=== PATIENT | female | born 1990 | race Hispanic/Latino ===

== ENCOUNTER 2025-09-13 08:07 | Emergency (ER) | payer OTHER ==
[~2025-09-13] VITALS: Ht 157.5 cm; Wt 83.9 kg
[2025-09-13 08:12] VITALS: BP 131/81; PULSE 78; RESP 20; TEMP 98; O2SAT 97
--- NOTE | 2025-09-13 08:25 | ERN ---
General Chief Complaint: Back Pain-No Injury Stated Complaint: BACK PAIN Time Seen by MD: 08:09 Source: patient History of Present Illness Initial Comments Patient is a 34-year-old female coming in complaining of right lower back pain. Per patient this has been ongoing for several days. She states that the pain starts in her lower back radiates down her right lower leg. The pain is sharp she quantifies the pain at 8/10. Pain is exacerbated with movement and bending over. Allergies: Coded Allergies: No Known Drug Allergies (Unverified Allergy, Unknown, 09/13/25) Past Medical History Past Medical History: No Pertinent History Past Surgical History: Other Surgical History Other: FALLOPIAN TUBE REMOVAL Female( History) LMP: Sep 01, 2025 ROS Dictation CONSTITUTIONAL: No chills, no fever, no weakness, no diaphoresis, no malaise. HEAD/FACE: No signs of trauma. EENT: No eye pain, no blurred vision, no tearing, no double vision, no ear pain, no ear discharge, no nose pain, no nasal congestion, no throat pain, no throat swelling, no mouth pain. RESPIRATORY: No cough, no orthopnea, no SOB, no stridor, no wheezing. CARDIOVASCULAR: No chest pain, no edema, no palpitations, no syncope. GASTROINTESTINAL/ABDOMINAL: No abdominal pain, no constipation, no diarrhea, no nausea, no vomiting. GENITOURINARY: No abnormal discharge, no dysuria, no frequent urination, no hematuria. No complaints of pain in the genitals. MUSCULOSKELETAL: back pain, no gout, no joint pain, no joint swelling, muscle pain, no muscle stiffness, no neck pain. INTEGUMENTARY: No change in color, no change in hair/nails, no dryness, no lesion, no lumps, no rash. NEUROLOGICAL/PSYCH: No anxiety, not depressed, no emotional problem, no headac he, no numbness, no pre-existing deficit, no history of seizures, no tremors, no weakness. HEMATOLOGIC/LYMPHATIC: Not anemic, no history of blood clots, no apparent bleeding, no bruising, glands not swollen. All Systems Negative, Except as Noted. Physical Exam Physical Exam Dictation VITAL SIGNS: Reviewed. GENERAL APPEARANCE: Alert, oriented x3, no acute distress, obese. HEAD AND FACE: Non-traumatic. EYES: PERRL, pink conjunctivas, eyelid no trauma, anterior chamber clear. EARS: Pinnas intact and no signs of trauma or erythema. Ear canals clear and no discharge. TMs no erythema. NOSE: No discharge, no bleeding. OROPHARYNX: Mouth normal, teeth no caries, tongue pink. Pharynx clear, no erythema. Tonsils no exudates, no abscesses noted. Mucous membrane moist. NECK: Supple, non-tender, no thyromegaly, no masses, no JVD, no bruits. BREAST: Deferred. CHEST: No tenderness, no crepitus, no paradoxical movement, no retractions. LUNGS: Clear, well-ventilated, symmetric, no rales, no wheezing, no rhonchi, no stridor, good breath sounds bilaterally. HEART: Regular rate, regular rhythm, no murmur, no gallops. VASCULAR: No peripheral edema. ABDOMEN: Soft, positive bowel sounds, nondistended, no guarding, nontender, no rebound, no masses no hepatomegaly, no splenomegaly, no Razo's sign, no hernias. RECTAL: Deferred. GENITAL: Deferred. NEUROLOGICAL: Normal speech, gross motor function intact, gross sensory function intact. MUSCULOSKELETAL: Neck nontender, full range of motion, back nontender, full range of motion. EXTREMITIES: Nontender, full range of motion. Right piriformis muscle pain on palpation, pain on flexion and SKIN: Color pink, dry, no turgor, no rash, no lacerations, no abrasions, no contusions. LYMPHATICS: Deferred. Results Laboratory and Microbiology Labs Reviewed?: Yes EKG/XRAY/US/CT/MRI X-RAY Comment IMAGING REPORT Signed PATIENT: ELA GODFREY MR#: [id number] : 1990 SEX: F AGE: 34 LOCATION: [facility] ORDER 3 STATUS: REG REPORT#: [id number] SERVICE REASON: back pain ORDERING PHYSICIAN: CHUCHO STUART MD PROCEDURE: LUMB 2 3VW - LUMBAR SPINE 2-3VWS EXAM: CR Lumbar Spine, 3 View. CLINICAL HISTORY: back pain COMPARISON: None provided. FINDINGS: BONES: No acute fracture or aggressively appearing osseous lesion. ALIGNMENT: Mild straightening of the lumbar spine. No significant scoliosis. DISCS / DEGENERATIVE CHANGES: Reduced L4-5 intervertebral disc space. The disc spaces are preserved. SOFT TISSUES: The soft tissues are unremarkable. IMPRESSION: Mild straightening of the lumbar spine. Reduced L4-5 intervertebral disc space. /[place] DICTATED BY: JOHANN MONDRAGON Jr., MD DATE: 09/13/251103 ELECTRONICALLY SIGNED BY: JOHANN MONDRAGON Jr., MD DATE: 09/13/251103 IMAGING REPORT Signed PATIENT: ELA GODFREY MR#: [id number] : 1990 SEX: F AGE: 34 LOCATION: [facility] ORDER 3 STATUS: [facility] REPORT#: [id number] SERVICE 2 REASON: back pain ORDERING PHYSICIAN: CHUCHO STUART MD PROCEDURE: CERV 2 3VW - CERV SPINE 2-3VWS EXAM: CR Cervical spine, 4views. CLINICAL HISTORY: Back pain. COMPARISON: None provided. FINDINGS: Cervical alignment is within normal limits. Normal intervertebral disc spaces. Normal vertebral body heights. No acute fracture. Bilateral C6 uncinate process hypertrophy and mild narrowing of the bilateral neural foramina at the C5-C6 level. The prevertebral soft tissues are within normal limits. The included lungs are clear. IMPRESSION: No acute bony changes. Bilateral C6 uncinate process hypertrophy and mild narrowing of the bilateral neural foramina at the C5-C6 level. /[place] DICTATED BY: JOHANN MONDRAGON Jr., MD DATE: 09/13/251102 ELECTRONICALLY SIGNED BY: JOHANN MONDRAGON Jr., MD DATE: 09/13/251102 MDM MDM: Differential diagnosis: Right piriformis muscle tenderness, right-sided sciatica, chronic back pain, osteoarthritis of the spine Rationale: Tests considered and ordered secondary to shared decision making include: Previous outside records reviewed: Old ER visits. Risk of complication and/or morbidity or mortality of patient management: None Medications-Per medication reconciliation Need for hospitalization: Patient does not meet criteria for hospitalization. Need for emergency major/minor surgery: No Patient is a 34-year-old female coming in complaining of right lower extremity pain. On physical exam right piriformis muscle tenderness on palpation right lower lumbar tenderness on palpation. X-rays disclose chronic changes. We will be referring patient to employment law specialist and/or neurosurgeon for further evaluation. ED Course Orders Procedure Category Date Status Time Ketorolac PHA 09/13/25 Complete Tromethamine 30mg/Ml 08:30 Orphenadrine Citrate PHA 09/13/25 Complete (Norflex) 08:30 Lumbar Spine 2-3vws RAD 09/13/25 Resulted 08:53 Cerv Spine 2-3vws RAD 09/13/25 Resulted 08:53 Triamcinolone Acet PHA 09/13/25 Complete 40mg/Ml 1ml (Kenalog 09:00 Current Medications Medications (Trade) Dose Ordered Sig/Juanjose Route PRN Reason Start Time Stop Time Status Last Admin Dose Admin Ketorolac Tromethamine (toRADol) 30 mg ONCE ONCE IM 09/13/25 08:30 09/13/25 08:31 DC 09/13/25 08:41 Orphenadrine Citrate (Norflex) 60 mg ONCE ONCE IM 09/13/25 08:30 09/13/25 08:31 DC 09/13/25 08:41 Triamcinolone Acetonide (Kenalog 40) 40 mg ONCE ONCE IM 09/13/25 09:00 09/13/25 09:01 DC 09/13/25 09:33 Vital Signs Date Time Temp Pulse Resp B/P (MAP) Pulse Ox O2 Delivery O2 Flow Rate FiO2 09/13/25 08:12 98.1 78 20 131/81 97 Room Air* 0 21 09/13/25 08:08 98.1 82 20 131/81 99 Room Air 0 DX & DISP Disposition: Discharge Departure Impression: Primary Impression: 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 TAKE MEDICATIONS DIRECTED HERE IN THE EMERGENCY ROOM. OKAY TO CONTINUE HOME MEDICATIONS UNLESS OTHERWISE DISCUSSED DURING YOUR VISIT IN THE EMERGENCY ROOM TODAY. RETURN TO YOUR NEAREST EMERGENCY ROOM IF SYMPTOMS WORSEN OR IF THERE IS NO IMPROVEMENT. CALL 911 IF YOU NEED IMMEDIATE ASSISTANCE. TAKE TYLENOL [id number] NE EDED AND IF NO CONTRAINDICATIONS ARE PRESENT. INCREASE ORAL HYDRATION. A WOUND CULTURE OR URINE CULTURE WAS ORDERED HERE IN THE EMERGENCY ROOM DEPARTMENT PLEASE FOLLOW-UP WITH PRIMARY CARE PROVIDER AND ADVISE THEM TO GET REPORTS FROM OUR FACILITY. IF YOU HAD ANY CARLY WRAP/SPLINTS THAT WERE APPLIED HERE, PLEASE DO NOT REMOVE THEM UNTIL YOU SEE YOUR PRIMARY CARE OR SPECIALTY. Referrals: Referrals: SELF,REFERRAL (PCP) JOSE MONTEZ MD, JOSE G MD Time of Disposition: 10:15 CHUCHO STUART MD Sep 13, 2025 08:25
[2025-09-13] MEDS: ORPHENADRINE 60MG/2ML IM ONE (08:41)
[2025-09-13] MEDS: TRIAMCINOLONE ACETONIDE 40 MG/ML 1ML VIAL IM ONE (09:33)
--- NOTE | 2025-09-13 10:04 | HMCIMG ---
EXAM: CR Cervical spine, 4views. CLINICAL HISTORY: Back pain. COMPARISON: None provided. FINDINGS: Cervical alignment is within normal limits. Normal intervertebral disc spaces. Normal vertebral body heights. No acute fracture. Bilateral C6 uncinate process hypertrophy and mild narrowing of the bilateral neural foramina at the C5-C6 level. The prevertebral soft tissues are within normal limits. The included lungs are clear. IMPRESSION: No acute bony changes. Bilateral C6 uncinate process hypertrophy and mild narrowing of the bilateral neural foramina at the C5-C6 level. /[place]
--- NOTE | 2025-09-13 10:05 | HMCIMG ---
EXAM: CR Lumbar Spine, 3 View. CLINICAL HISTORY: back pain COMPARISON: None provided. FINDINGS: BONES: No acute fracture or aggressively appearing osseous lesion. ALIGNMENT: Mild straightening of the lumbar spine. No significant scoliosis. DISCS / DEGENERATIVE CHANGES: Reduced L4-5 intervertebral disc space. The disc spaces are preserved. SOFT TISSUES: The soft tissues are unremarkable. IMPRESSION: Mild straightening of the lumbar spine. Reduced L4-5 intervertebral disc space. /[place]
[2025-09-13] MEDS ORDERED: METH-662 PO (10:17)
[2025-09-13] MEDS ORDERED: NAPR-1194 PO (10:17)
[2025-09-16] MEDS ORDERED: IBUP-2784 PO (11:22)
[2025-09-16] MEDS ORDERED: LIDO1ADH71 TP (11:22)
== END 2025-09-13 10:35 | disposition home or self-care (01) ==
LOC: EDH 08:07
DX: M47.812 Spondylosis without myelopathy or radiculopathy, cervical region (principal); M47.816 Spondylosis without myelopathy or radiculopathy, lumbar region
CPT/HCPCS: 99284; 72040; 72100; 96372 ×3; J1885; J3301; J2360